=== PATIENT | male | born 1945 | race Hispanic/Latino ===

== ENCOUNTER 2016-07-16 10:07 | Inpatient (IN) | payer MEDICARE, OTHER ==
[2016-07-16 10:46] VITALS: BMI 12.9
[2016-07-16] MEDS ORDERED: Propofol 10 mg/ml Inj (20 ML) ONE (14:23)
[2016-07-16] MEDS ORDERED: Succinylcholine Chloride 20 mg/ml Syr (5 ml) IV ONE (14:24)
[2016-07-16] MEDS ORDERED: Lidocaine 1% Inj (20ml) ONE (14:35)
[2016-07-16] MEDS ORDERED: Bupivacaine/Epi 0.25%-1:200,000 10 ml PF inj IJ ONE (14:35)
[2016-07-16] MEDS ORDERED: ceFAZolin IV 1 gm in Dextrose 50 ML IVPB ONE (14:36)
[2016-07-16] MEDS ORDERED: Lactated Ringer's 1,000 ML IV ONE (14:40)
[2016-07-16] MEDS ORDERED: metroNIDAZOLE IV 500 mg/100 ml 100 ML ONE (15:05)
[2016-07-16] MEDS ORDERED: Neostigmine Methylsulfate 3mg/3ml Syringe IV ONE (15:14)
[2016-07-16] MEDS ORDERED: HYDROmorphone 0.5 mg/0.5 ml ISec IVP PRN (16:42)
--- NOTE | 2016-07-16 16:42 | PCM.SURG1 ---
Surgeon's Initial Post Op Note - Surgeon's Notes Surgeon: Colton Machine Setter Supervisor: PGY3, Ana CLANCYNA Type of Anesthesia: General Endo Pre-Operative Diagnosis: Rectal polyp Operative Findings: Rectal polyp Post-Operative Diagnosis: Rectal polyp Operation Performed: Excision of Rectal Polyp via TAMIS Specimen/Specimens Removed: Rectal Polyp Estimated Blood Loss: EBL {In ML}: 10 Blood Products Given: N/A Drains Used: No Drains Post-Op Condition: Good Date of Surgery/Procedure: 07/16/16 Time of Surgery/Procedure: 14:30
--- NOTE | 2016-07-16 17:34 | PN ---
DATE: 07/16/2016 SUBJECTIVE: The patient just underwent TAMIS excision of rectal polyp. He denies any chest pain or shortness of breath. Monitor reveals sinus rhythm. PHYSICAL EXAMINATION: VITAL SIGNS: Blood pressure 125/75, heart rate 70, temperature 97.6. HEENT: Temporal wasting. NECK: No JVD. CHEST: Clear. HEART: S1, S2 regular. ABDOMEN: Soft. EXTREMITIES: No edema. ASSESSMENT: 1. Status post transanal minimally invasive surgery excision of rectal polyp. 2. Chronic obstructive lung disease. 3. Elevated proBNP, most likely right ventricular strain pattern. RECOMMENDATIONS: Continue current p.r.n. IV hydromorphone. Continue intravenous hydration. We will obtain a postoperative EKG. Geronimo Cervantes MD cc: [id number] TT: 07/16/2016 17:33:36 Confirmation # [id number] Dictation # [id number]
[2016-07-16] MEDS: Oxycodone/Acetaminophen 5/325 mg Tab PO PRN (22:32)
--- NOTE | 2016-07-16 23:01 | OP ---
PROCEDURE DATE: 07/16/2016 PREOPERATIVE DIAGNOSIS: Lower rectal polyp, tubulovillous adenoma. POSTOPERATIVE DIAGNOSIS: Lower rectal polyp, tubulovillous adenoma. PROCEDURE DONE: Transanal excision of rectal polyp, SABIHA. SURGEON: Dr. Bora Sgeura. BAKER TEST: Thomas Waterman, PGY-3 resident, and CIARRA Monique. ANESTHESIA: General endotracheal tube anesthesia. ESTIMATED BLOOD LOSS: Around 10 mL. DRAINS: None. PATHOLOGY: The rectal polyp was for the pathology. COMPLICATIONS: None. INTRAOPERATIVE FINDINGS: The patient had a 3 cm polyp in the lower rectum starting from the dentate line up to the lower rectum. INTRAOPERATIVE STEPS: This 70-year-old male who was diagnosed with tubulovillous rectal polyp of low er rectum and the patient was consented for the transanal minimally invasive surgery and excision of the rectal polyp. The patient was brought to the OR, placed supine on the operating table. After in duction of anesthesia, the patient was placed in lithotomy position and perineal area was prepped and draped and the Gelport was placed into the anal canal and the pneumo was created and 3 port was plac ed into the Gelport and the camera was introduced. Through the extra 2 ports, with hook and grasper, the polyp was completely excised with full thickness. After proper excision of the polyp, the polyp was taken out and it was sent to the table for pathology. Wound was closed in 2 layers, the full th ickness of the rectum with 3-0 Vicryl continuous suture from upside down and from downside out. Afte r proper closure of the wound, pneumo was deflated, the Gelport was taken out and dry sterile dressin g was applied. The patient tolerated the procedure well. Count of instruments and gauze was correct . There was no apparent complication. The patient was extubated in the OR and sent to the postanest hesia care unit in stable condition. Bora Segura MD cc: [id number] TT: 07/16/2016 23:00:11 celina
[2016-07-17 01:16] VITALS: RESP 20
[2016-07-17 07:19] LABS: CHLORIDE 100 mmol/L (98-107); SODIUM 136 mmol/L (132-148)
[2016-07-17 07:20] LABS: POTASSIUM 4.2 mmol/L (3.6-5.2)
[2016-07-17 07:21] LABS: BASO % 0.6 % (0.0-2.0); EOS # 0.1 K/uL (0.0-0.7); EOS % 1.4 % (0.0-4.0); HEMATOCRIT 30.3 % (35.0-51.0); LYMPH # 0.7 K/uL (1.0-4.3); LYMPH % 12.3 % (20.0-40.0); MEAN CELL VOLUME 99.4 fL (80.0-94.0); MEAN CORPUSCULAR HEMOGLOBIN 32.8 pg (27.0-31.0); MEAN CORPUSCULAR HGB CONC 32.9 g/dL (33.0-37.0); MEAN PLATELET VOLUME 9.8 fL (7.2-11.7); MONO # 0.8 K/uL (0.0-0.8); MONO % 12.4 % (0.0-10.0); NRBC % 0.1 % (0.0-2.0); RED CELL DISTRIBUTION WIDTH 13.9 % (11.5-14.5); WHITE BLOOD COUNT 6.1 K/uL (4.8-10.8)
[2016-07-17 07:22] LABS: GFR AFRICAN-AMERICAN > 60
[2016-07-17 07:23] LABS: BLOOD UREA NITROGEN 11 mg/dL (9-20); CALCIUM 8.2 mg/dl (8.6-10.4); CARBON DIOXIDE 26 mmol/L (22-30); GLUCOSE,RANDOM 96 mg/dL (75-110)
[2016-07-17] MEDS: Fluticasone-Salmeterol 250-50mcg Diskus INH SCH ×2 (09:39→19:26)
[2016-07-17] MEDS: Tiotropium 18 mcg Cap For Inhalation INH SCH (09:39)
[2016-07-17] MEDS ORDERED: Enoxaparin 40 mg Syringe SC SCH (10:00)
--- NOTE | 2016-07-17 10:17 | CP.PCM.PN ---
<Sindi Chand - Last Filed: 07/17/16 10:07> Subjective - Date & Time of Evaluation Date of Evaluation: 07/17/16 Time of Evaluation: 09:45 - Subjective Subjective: General Surgery Dr. Segura Pt S&E @bedside. NAEO. denies pain, N/V, F/C. (-) BM. tolerating diet. Objective - Vital Signs/Intake and Output Vital Signs (last 24 hours): Temp Pulse Resp BP Pulse Ox 98.1 F 82 20 100/54 L 100 07/17/16 07:35 07/17/16 07:35 07/17/16 07:35 07/17/16 07:35 07/17/16 07:35 Intake and Output: 07/17/16 07/17/16 06:59 18:59 Intake Total 240 Output Total 350 Balance -110 - Medications Medications: Current Medications Bisoprolol Fumarate (Zebeta) 5 mg PO DAILY [facility] Enoxaparin Sodium (Lovenox) 40 mg SC Q12 [facility] Oxycodone/Acetaminophen (Percocet 5/325 Mg Tab) 1 tab PO Q4H PRN PRN Reason: Pain, moderate (4-7) Stop: 07/19/16 16:43 Last Admin: 07/16/16 22:32 Dose: 1 tab Fluticasone/Salmeterol (Advair Diskus 250/50) 1 puff INH RQ12 [facility] Last Admin: 07/17/16 09:39 Dose: 1 puff Tiotropium [place] (Spiriva) 18 mcg INH RQ24 [facility] Last Admin: 07/17/16 09:39 Dose: 18 mcg Zolpidem Tartrate (Ambien) 5 mg PO HS PRN PRN Reason: Insomnia Last Admin: 07/16/16 22:25 Dose: 5 mg - Labs Labs: 07/17/16 06:56 07/17/16 06:56 Laboratory Tests 07/17/16 06:56 Calcium 8.2 L - Constitutional Appears: Non-toxic, No Acute Distress - Head Exam Head Exam: NORMAL INSPECTION - Eye Exam Eye Exam: Normal appearance - ENT Exam ENT Exam: Mucous Membranes Moist - Respiratory Exam Respiratory Exam: NORMAL BREATHING PATTERN. absent: Accessory Muscle Use, Respiratory Distress - GI/Abdominal Exam GI & Abdominal Exam: Soft. absent: Distended, Tenderness, Rebound - Rectal Exam Additional comments: dressing c/d/i packing removed - Neurological Exam Neurological Exam: Alert, Awake, Oriented x3 - Psychiatric Exam Psychiatric exam: Normal Affect, Normal Mood - Skin Skin Exam: Dry, Intact, Normal Color, Warm Assessment and Plan - Assessment and Plan (Free Text) Assessment: 70 y/o w/ adenocarcinoma POD# 1 s/p Excision of Rectal Polyp via TAMIS - cont HHD - cont current medications - restart Coumadin tomorrow, Bridge w/ LVX - dressing changes PRN - Cleared for D/C to TCU, f/u TCU eval Pt seen and discussed w/ Dr. Colton Chand DO PGY1 <Bora Segura - Last Filed: 07/17/16 21:27> Objective - Vital Signs/Intake and Output Vital Signs (last 24 hours): Temp Pulse Resp BP Pulse Ox 99.8 F H 94 H 20 126/65 95 07/17/16 16:22 07/17/16 16:22 07/17/16 16:22 07/17/16 16:22 07/17/16 16:22 Intake and Output: 07/17/16 07/18/16 18:59 06:59 Intake Total 200 Output Total 100 Balance 100 - Medications Medications: Current Medications Bisoprolol Fumarate (Zebeta) 5 mg PO DAILY [facility] Last Admin: 07/17/16 10:40 Dose: 5 mg Enoxaparin Sodium (Lovenox) 40 mg SC Q12 [facility] Last Admin: 07/17/16 10:30 Dose: 40 mg Oxycodone/Acetaminophen (Percocet 5/325 Mg Tab) 1 tab PO Q4H PRN PRN Reason: Pain, moderate (4-7) Stop: 07/19/16 16:43 Last Admin: 07/17/16 21:20 Dose: 1 tab Fluticasone/Salmeterol (Advair Diskus 250/50) 1 puff INH RQ12 [facility] Last Admin: 07/17/16 19:26 Dose: 1 puff Tiotropium [place] (Spiriva) 18 mcg INH RQ24 [facility] Last Admin: 07/17/16 09:39 Dose: 18 mcg Zolpidem Tartrate (Ambien) 5 mg PO HS PRN PRN Reason: Insomnia Last Admin: 07/17/16 21:20 Dose: 5 mg - Labs Labs: 07/17/16 06:56 07/17/16 06:56 PT 11.8 SECONDS (9.7-12.2) 07/17/16 19:30 INR 1.1 07/17/16 19:30 Attending/Attestation - Attestation I have personally seen and examined this patient.: Yes I have fully participated in the care of the patient.: Yes I have reviewed all pertinent clinical information, including history, physical exam and plan: Yes Notes (Text): 07/17/16 21:26 Pt was seen and examined at bedside on 07/17/2016 Agree with above note and assessment Pt can be DC to TCU Reg diet C.W Home meds Plan d.w pt in detail.
--- NOTE | 2016-07-17 11:57 | CARD ---
APPROVED REPORT EKG Measurement Heart [id number] <Conclusion> Normal sinus rhythm Left axis deviation Junctional ST depression, probably normal Abnormal ECG
[2016-07-17 19:39] LABS: INR 1.1
[2016-07-17] MEDS: Oxycodone/Acetaminophen 5/325 mg Tab PO PRN (21:20)
[2016-07-18] MEDS: Oxycodone/Acetaminophen 5/325 mg Tab PO PRN ×2 (05:23→09:35)
[2016-07-18] MEDS: Tiotropium 18 mcg Cap For Inhalation INH SCH (07:20)
[2016-07-18] MEDS: Fluticasone-Salmeterol 250-50mcg Diskus INH SCH (07:20)
--- NOTE | 2016-07-18 07:45 | HP ---
This is a 70-year-old male with history of multiple medical problems, and underwent resection of a rectal polyp. The patient was recently admitted to [facility] [place] postoperative, as he was placed on Lovenox with intention to switched to warfarin. The patient denied to have any abdominal pain, or shortness of breath, or chest pain. Other review of systems is negative, except for generalized weakness and unsteadiness. ALLERGIES: NKA. SOCIAL HISTORY: Positive smoker more than 50 years. No ETOH or substance abuse. FAMILY HISTORY: Not contributory. PHYSICAL EXAMINATION: The patient is in bed, comfortable; not in any cardiopulmonary distress. Blood pressure 126/65, temperature 99.8, respiratory rate 20, and pulse 94. HEENT: Pupils equal, reactive to light. Normal-appearing mucosa of the conjunctivae, oropharyngeal, and nasal membrane mucosa. NECK: Supple, no JVD, no carotid bruit, no lymph node, no thyromegaly. CHEST AND LUNGS: Bilateral symmetrical expansion. Good air exchange. No rales , no rhonchi. CARDIOVASCULAR SYSTEM: PMI not localized. ABDOMEN: Normoactive BS no tenderness, no organomegaly, no masses. EXTREMITIES: No cyanosis, no clubbing, no edema. CENTRAL NERVOUS SYSTEM: Alert, awake, oriented x 3. No neurological deficits could be appreciated. ASSESSMENT: 1. Status post resection of a rectal polyp. 2. Hypertension. 3. Smoker. PLAN: We will start patient on Coumadin, will start the patient on warfarin and monitor PT/INR, as well as continue Lovenox. I discussed the patient's condition with Dr. Segura, as well as with the patient's son over the phone. Nura Arnold MD cc: [phone] TT: 07/17/2016 22:07:17 jn MTDD
[2016-07-18 08:14] VITALS: BP 107/61; TEMP 98
[2016-07-18 10:48] VITALS: PULSE 78; O2SAT 99
--- NOTE | 2016-07-18 16:32 | CP.PCM.DIS ---
Provider - Provider Date of Admission: 07/16/16 18:48 Attending physician: Nura Arnold MD Time Spent in preparation of Discharge (in minutes): 30 Hospital Course - Lab Results Lab Results: Most Recent Lab Values WBC 6.1 K/uL (4.8-10.8) 07/17/16 06:56 RBC 3.05 Mil/uL (4.40-5.90) L 07/17/16 06:56 Hgb 10.0 g/dL (12.0-18.0) L 07/17/16 06:56 Hct 30.3 % (35.0-51.0) L 07/17/16 06:56 MCV 99.4 fL (80.0-94.0) H 07/17/16 06:56 MCH 32.8 pg (27.0-31.0) H 07/17/16 06:56 MCHC 32.9 g/dL (33.0-37.0) L 07/17/16 06:56 RDW 13.9 % (11.5-14.5) 07/17/16 06:56 Plt Count 156 K/uL (130-400) 07/17/16 06:56 MPV 9.8 fL (7.2-11.7) 07/17/16 06:56 Neut % (Auto) 73.3 % (50.0-75.0) 07/17/16 06:56 Lymph % (Auto) 12.3 % (20.0-40.0) L 07/17/16 06:56 [place] % (Auto) 12.4 % (0.0-10.0) H 07/17/16 06:56 Eos % (Auto) 1.4 % (0.0-4.0) 07/17/16 06:56 Baso % (Auto) 0.6 % (0.0-2.0) 07/17/16 06:56 Neut # 4.4 K/uL (1.8-7.0) 07/17/16 06:56 Lymph # 0.7 K/uL (1.0-4.3) L 07/17/16 06:56 [place] # 0.8 K/uL (0.0-0.8) 07/17/16 06:56 Eos # 0.1 K/uL (0.0-0.7) 07/17/16 06:56 Baso # 0.0 K/uL (0.0-0.2) 07/17/16 06:56 PT 11.4 SECONDS (9.7-12.2) 07/18/16 07:11 INR 1.0 07/18/16 07:11 APTT 27 SECONDS (21-34) 07/18/16 07:11 Sodium 136 mmol/L (132-148) 07/17/16 06:56 Potassium 4.2 mmol/L (3.6-5.2) 07/17/16 06:56 Chloride 100 mmol/L (98-107) 07/17/16 06:56 Carbon Dioxide 26 mmol/L (22-30) 07/17/16 06:56 Anion Gap 14 (10-20) 07/17/16 06:56 BUN 11 mg/dL (9-20) 07/17/16 06:56 Creatinine 0.8 MG/DL (0.8-1.5) 07/17/16 06:56 Est GFR ( Amer) > 60 07/17/16 06:56 Est GFR (Non-Af Amer) > 60 04 06:56 Random Glucose 96 mg/dL (75-110) 04 06:56 Calcium 8.2 mg/dl (8.6-10.4) L 04 06:56 - Hospital Course Hospital Course: 70yo M with PMHx of HTN, DVT, Factor V Leiden on Coumadin was found to have rectal mass on colonoscopy but was unable to be removed. Patient was transferred to [facility] from [place] [facility] for surgery. On 4, patient had excision of rectal polyp via TAMIS at [facility]. Path report showed tubulovillous adenoma. On POD #1, rectal packing was removed. On POD#2, he was restarted on his Coumadin with bridging with Lovenox. He was tolerating regular diet. He was transferred back to the TCU at [place]. Discharge Exam - Head Exam Head Exam: NORMAL INSPECTION - Eye Exam Eye Exam: EOMI, Normal appearance - Respiratory Exam Respiratory Exam: NORMAL BREATHING PATTERN. absent: Respiratory Distress - Cardiovascular Exam Cardiovascular Exam: +S1, +S2 - GI/Abdominal Exam GI & Abdominal Exam: Soft. absent: Tenderness - Neurological Exam Neurological exam: Alert, CN II-XII Intact, Oriented x3 - Psychiatric Exam Psychiatric exam: Normal Affect, Normal Mood - Skin Skin Exam: Dry, Normal Color, Warm Discharge Plan - Follow Up Plan Condition: GOOD Disposition: REHAB FACILITY/REHAB UNIT Patient education suggested?: Yes Instructions: Warfarin (By mouth), Heart Failure (DC), Heart Healthy Diet (DC) Referrals: Bora Segura MD [Staff Provider] - Clinical Quality Measures - Date & Time of Discharge Summary Date of Discharge Summary: 07/18/16 Time of Discharge Summary: 16:36
--- NOTE | 2016-07-18 17:39 | PCM.HF ---
Heart Failure Core Measure - Heart Failure Ejection Fraction: 40 % or Greater (LVEF 65-70%) MANOHAR Inhibitor Prescribed: No Contraindication/Reason for not providing: LOW BP Beta-Benjamin Prescribed: Bisoprolol Angiotensin II Receptor Benjamin Prescribed: No Contraindication/Reason for not providing: LOW BP AnticoagulationTherapy for Atrial Fibrillation/Atrialflutter: Yes Aldosterone Antagonist Prescribed: No Contraindication/Reason for not providing: LVEF >40% Hydralazine Nitrate Prescribed: No Contraindication/Reason for not providing: LVEF >40% Implantable Cardioverter Defibrillator Therapy: No Contraindication/Reason for not providing: LVEF >40% Cardiac Resynchronization Therapy Prescribed: No Contraindication/Reason for not providing: LVEF >40% - Follow up Will be discharged to: Long Term Facility Follow Up Date (must be within 7 days from discharge): 07/20/16 Follow Up Time: 09:00
--- NOTE | 2016-07-19 09:28 | DS ---
REASON FOR ADMISSION: This is a 70-year-old male with history of multiple medical problems. He was admitted after a resection of rectal polyp. COURSE OF HOSPITALIZATION: The patient was admitted to medical floor and he was resumed on his Loven ox 1 mg per kg every 12 hours. The patient also was started on Coumadin and was evaluated by physica l therapy and recommended to have more rehabilitation and patient was discharged to transitional care unit at [facility] to continue Coumadin and once the INR is therapeutic, other anticoagulant L ovenox will be stopped. FINAL DIAGNOSES: 1. Rectal polyp, status post resection. 2. Hypertension. 3. Chronic obstructive pulmonary disease. Nura Arnold MD cc: [phone] TT: 07/19/2016 09:27:45 en
== END 2016-07-18 14:10 | DRG 394 ==
LOC: C.SDS 10:07 → C.6T 18:48
PROVIDERS: ADMIT Internal Medicine; ATTEND Internal Medicine
PROC: 0DBP4ZX Excision of Rectum, Percutaneous Endoscopic Approach, Diagnostic (ICD-10-PCS; principal; 2016-07-16 14:00)
DX: D12.8 Benign neoplasm of rectum (principal); D68.51 Activated protein C resistance; J44.9 Chronic obstructive pulmonary disease, unspecified; R00.9 Unspecified abnormalities of heart beat; I10 Essential (primary) hypertension; F17.210 Nicotine dependence, cigarettes, uncomplicated; Z79.01 Long term (current) use of anticoagulants